=== PATIENT | male | born 1990 | race Caucasian/White ===

== ENCOUNTER 2021-03-30 10:05 | Emergency (ER) | payer MEDICAID, SELFPAY ==
[2021-03-30 10:06] VITALS: BP 172/123; PULSE 114; RESP 16; TEMP 36.3; O2SAT 98; BMI 29.9
--- NOTE | 2021-03-30 10:37 | EKG12_ITS ---
Test Reason : DETOX Blood Pressure : / mmHG Vent. Rate : 097 BPM Atrial Rate : 097 BPM P-R Int : 134 ms QRS Dur : 086 ms QT Int : 350 ms P-R-T Axes : 062 034 031 degrees QTc Int : 444 ms Normal sinus rhythm Normal ECG Confirmed by ANTONI RUIZ, PILAR ([id number]), senior editor SPENSER HAWLEY ([id number]) on 04/02/2021 11:02:00 AM Referred By: Confirmed By:PILAR CORRALES MD
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
--- NOTE | 2021-03-30 10:45 | ED.RN ---
NO OLD EKGS
--- NOTE | 2021-03-30 11:00 | CM.ED ---
SOCIAL WORK Reason for Consult: Substance Abuse Met with patient in room. Introduced role and reason for referral. Patient requesting detox from fentanyl. Last use was yesterday morning. Patient states has done inpatient rehab in the past. Patient wanting to complete detox and plan to do medication assisted treatment-[facility] through outpatient program. Will updated Addiction Therapist upon patient's admission. Plan: BOOGIE Dugan, DRAG OUT MAN, SIGHTSEEING GUIDE
[2021-03-30 11:06] LABS: Absolute Lymphocyte Count 2.77 X10^3/uL (0.83-4.51); Absolute Neutrophil Count 3.9 X10^3/uL (2.0-7.7); Basophil# 0.05 X10^3/uL; Basophil% 0.7 % (0-1); Eosinophil# 0.36 X10^3/uL; Eosinophils% 4.7 % (0-5); Hematocrit 39.5 % (40-54); Hemoglobin 13.3 g/dL (13.0-16.5); Lymphocyte # 2.77 X10^3/ul (0.83-4.51); Lymphocyte % 36.5 % (19-41); Mean Corp Hgb Conc 33.7 g/dL (32-36); Mean Corpuscular Hgb 27.3 pg (27.0-32.0); Mean Corpuscular Volume 80.9 fL (80-94); Mean Platelet Vol. 9.4 fl (6.2-12.0); Monocyte% 6.6 % (0-10); NRBC Flagged by Analyzer 0 % (0-5); Neutrophil # 3.87 X10^3/uL (2.7-7.7); Platelet Count 259 K/mm3 (150-450); RBC Distribution Width CV 12.3 % (11.6-14.6); RBC Distribution Width SD 35.8 fl (35.1-43.9); Red Blood Count 4.88 M/mm3 (4.6-6.2); White Blood Count 7.6 K/mm3 (4.4-11.0)
[2021-03-30] MEDS: Phenobarbital 32.4 MG Tablet 97.2 MG PO (11:10)
[2021-03-30] MEDS: LORazepam 2 MG/ML Syringe 0.5 MG IV (11:11)
[2021-03-30] MEDS: Ondansetron 4 MG/2 ML Vial IV (11:11)
[2021-03-30 11:27] LABS: ALB/GLOB Ratio 1.2 RATIO (0.9-2.4); AST(SGOT) 16 U/L (15-37); Alanine Aminotransfer ALT/SGPT 38 U/L (16-61); Albumin, Serum 4.1 g/dL (3.2-5.0); Alkaline Phosphatase 99 U/L (45-117); Anion Gap 5 (5-15); BUN 18 mg/dL (7-18); BUN/Creat Ratio 18.1 RATIO (10-20); Calcium,Total 8.9 mg/dL (8.5-10.1); Chloride 106 mmol/L (98-107); EST Glomerular Filtration Rate 93 mL/min (>60); Est Glom Filt Rate - Afr Amer 113 mL/min (>60); Estimated Creatinine Clearance 115.04 ml/min; Globulin 3.4 g/dL (2.2-4.2); Glucose 112 mg/dL (74-106); Potassium 3.7 mmol/L (3.5-5.1); Protein, Total 7.5 g/dL (6.4-8.2); Sodium Level 139 mmol/L (136-145)
[2021-03-30 11:33] LABS: Amphetamine Urine VISTA POSITIVE (<1000 ng/mL); Barbiturate Urine VISTA NEGATIVE (< 200 ng/mL); Benzodiazepine Urine VISTA NEGATIVE (< 200 ng/mL); Cocaine Urine VISTA NEGATIVE (< 300 ng/mL); Ecstacy Urine VISTA POSITIVE (< 500 ng/mL); Methadone Urine VISTA NEGATIVE (< 300 ng/mL); PCP Urine VISTA NEGATIVE (< 25 ng/mL); THC Urine VISTA POSITIVE (< 50 ng/mL); Vista UDS pH Range 6
[2021-03-30 11:35] LABS: Alcohol, Blood (Medical)-Serum < 3.0 mg/dL
[2021-03-30 11:43] VITALS: BP 153/104; PULSE 92; RESP 18; TEMP 36.4; O2SAT 99
--- NOTE | 2021-03-30 11:43 | HP.PCM.HOS_ITS ---
HPI - General General Date of Admission: 03/30/21 Date of Service: 03/30/21 Chief Complaint: Restless legs HPI Narrative KING ECHOLS, is a 30 M with past medical history signal for opioid dependence who presents with restless legs. Patient also complains of being irritable and experiencing pain in the legs as well as abdominal pain. Patient admits to use of fentanyl which he smokes. Last use was a day prior to coming in. He also admits to intermittent methamphetamine use. An assessment of acute opioid withdrawal was made admitted to regular nursing floor for medical stabilization. [facility] Medical History Opiate addiction Medical History no medical history no medical history Allergy/AdvReac Type Severity Reaction Status Date / Time bee pollen Allergy Anaphylaxis Verified 03/30/21 10:24 Family History Mother No problems noted. Father No problems noted. Family History no significant family his no significant family history Surgical History no surgical history Social History (Updated 03/30/21 @ 10:[address] Fernie Coleman MD) household members: significant other Smoking Status: Never smoker alcohol intake: current alcohol intake frequency: other substance use type: marijuana, crack/cocaine and opiates ROS ROS Narrative GENERAL: chills, night sweats, HEENT: denies headache, sinus congestion, or drainage, dysphagia RESPIRATORY: denies cough, sputum production, shortness of breath, CARDIAC: , palpitations, orthopnea, PND GASTROINTESTINAL: abdominal pain, GENITOURINARY: denies dysuria, urgency, EXTREMITY: denies swelling MUSCULOSKELETAL: joint pain NEUROLOGIC: denies focal numbness, weakness, tingling HEMATOLOGIC: denies easy bruising and/or hemorrhage INTEGUMENT: denies rashes PSYCHIATRIC: denies suicidal or homicidal ideation Vital Signs Vital Signs Vital Signs: 03/30/21 10:06 Temperature 97.4 F L Temperature Source Temporal Pulse Rate 114 H Respiratory Rate 16 Blood Pressure 172/123 H Blood Pressure Mean 139 Pulse Ox 98 Oxygen Delivery Method Room Air Weight Weight: 97.522 kg Body Mass Index (BMI) 29.9 Physical Exam Narrative GENERAL: Patient appears anxious HEENT: Atraumatic; EYES; Anicteric, Normal Conjunctiva NECK; supple, normal thyroid, RESPIRATORY: Diminished to auscultation CARDIOVASCULAR: Regular S1 S2, tachycardic GI: soft, normoactive bowel sounds, : No Renal angle tenderness; EXTREMITIES: No edema, no clubbing, MUSCULOSKELETAL: no muscle waisting NEURO: Awake; no lateralizing signs. SKIN: No Rash PSYCH; Flat affect Results Lab / Micro Data Result Diagrams: 03/30/21 10:58 03/30/21 10:58 Labs: Laboratory Results - last 24 hr 03/30/21 10:57: Urine Opiates Screen NEGATIVE, Urine Methadone Screen NEGATIVE, Ur Barbiturates Screen NEGATIVE, Ur Phencyclidine Scrn NEGATIVE, Ur Amphetamines Screen POSITIVE H, U Methamphetamin-MDMA POSITIVE H, U Benzodiazepines Scrn NEGATIVE, Urine Cocaine Screen NEGATIVE, U Cannabinoids Screen POSITIVE H, Ur Drug Screen Comment 03/30/21 10:58: WBC 7.6, RBC 4.88, Hgb 13.3, Hct 39.5 L, MCV 80.9, MCH 27.3, MCHC 33.7, RDW Std Deviation 35.8, RDW Coeff of Jen 12.3, Plt Count 259, MPV 9.4, Immature Gran % (Auto) 0.500, Neut % (Auto) 51.0, Lymph % (Auto) 36.5, [place] % (Auto) 6.6, Eos % (Auto) 4.7, Baso % (Auto) 0.7, Absolute Neuts (auto) 3.9, Absolute Lymphs (auto) 2.77, Nucleated RBC % 0 03/30/21 10:58: Sodium 139, Potassium 3.7, Chloride 106, Carbon Dioxide 28.0, Anion Gap 5, BUN 18, Creatinine 1.00, Estim Creat Clear Calc 115.04, Est GFR (MDRD) Af Amer 113, Est GFR (MDRD) Non-Af 93, BUN/Creatinine Ratio 18.1, Glucose 112 H, Calcium 8.9, Total Bilirubin 0.40, AST 16, ALT 38, Alkaline Phosphatase 99, Total Protein 7.5, Albumin 4.1, Globulin 3.4, Albumin/Globulin Ratio 1.2 03/30/21 10:58: Ethyl Alcohol < 3.0 Assessment & Plan Assessment/Plan (1) Opiate withdrawal: (2) High blood pressure: (3) Opiate addiction: (4) Sinus tachycardia: PLAN: Patient is a 30-year-old gentleman with history of opioid dependence presenting with acute opioid withdrawal 1. Acute opiate withdrawal ?Patient has been admitted to regular nursing floor for medical stabilization using Subutex. Consult was also placed to [facility] counseling services to assist with discharge planning 2. Elevated blood pressure ? Reactive possibly secondary to patient withdrawal from alcohol 3. Sinus tachycardia also reactive from patient withdrawal from patient's acute opioid withdrawal 4. Polysubstance abuse ? Including methamphetamines marijuana as well as old. Patient was counseled on cessation 5. DVT prophylaxis ? Low risk did encourage early ambulation Charges/Coding Visit Charges Inpatient E&M: 64805 Init Hosp L3
--- NOTE | 2021-03-30 12:35 | CM.ED ---
SOCIAL WORK Patient with additional questions regarding RAMP. Call facilitated to Addition Therapist, Nori. Plan: NATALI Dugan, CARD SELLER, EXTENSION FORESTER
--- NOTE | 2021-03-30 12:55 | ED.RN ---
Patient has requested IV to be removed. Patient would like to go to another detox facility in [place]. Patients Iv has been removed. Margarito, clerical and office support workers notified.
== END 2021-03-30 13:00 | disposition home or self-care (01) ==
PROVIDERS: Emergency Medicine; Emergency Provider Internal Medicine; Visit Provider Internal Medicine
DX: F11.23 Opioid dependence with withdrawal (principal); G25.81 Restless legs syndrome; R03.0 Elevated blood-pressure reading, without diagnosis of hypertension; R00.0 Tachycardia, unspecified
CPT/HCPCS: 80053; 80307; 82077; 85025; 93005; 96374; 96375; 99285; J2405